=== PATIENT | female | born 1995 | race Caucasian/White ===

== ENCOUNTER → 2019-11-11 17:08 | Observation (INO) | END | disposition home or self-care (01) | LOC: 1NENULAB | PROVIDERS: ADMIT Advanced Practice Midwife; ATTEND Advanced Practice Midwife ==

== ENCOUNTER → 2019-11-26 19:00 | Observation (INO) ==
[2019-11-26 16:02] LABS: Bilirubin,Urine Negative (Negative); Blood,Urine Small (Negative); Clarity,Urine Clear (Clear); Color,Urine Colorless (Yellow); Glucose,Urine (UA) Normal (Normal); Ketones,Urine Negative (Negative); Leukocyte Esterase,Urine Negative (Negative); Nitrite,Urine Negative (Negative); Protein,Urine Negative (Neg-Trace); RBC,Urine 0-3 per hpf (0-3); Specific Gravity,Urine 1.005 (1.010-1.025); Squamous Epithelial Cell,Urine Few per hpf (None-Few); Urobilinogen,Urine Normal (Normal); WBC,Urine 0-3 per hpf (0-3)
== END | disposition home or self-care (01) ==
LOC: 1NENULAB
PROVIDERS: ADMIT Registered Nurse; ATTEND Registered Nurse

== ENCOUNTER 2019-12-13 16:25 | Inpatient (IN) ==
[~2019-12-13 16:25] MED LIST: *HR* FentaNYL (PF) 100 MCG/2 ML VIAL IVP PRN; Famotidine 20 MG/2 ML VIAL IVP PRN; Lidocaine 1% 20 ML MDV INFILT PRN; Metoclopramide 10 MG/2 ML VIAL IVP PRN; Naloxone 0.4 MG/ML INJ IVP PRN; Ondansetron 4 MG/2 ML VIAL IVP PRN
[2019-12-13] MEDS ORDERED: EPHEDrine 50 MG/ML VIAL IVP PRN (16:52)
[2019-12-13] MEDS ORDERED: Epidural Premix (fent/bupiv) 110 ML EP SCH (17:00)
[2019-12-13 17:48] LABS: Basophils # 0.1 K/mcL (0.0-0.2); Basophils % 0.7 %; Eosinophils # 0.1 K/mcL (0.0-0.6); Eosinophils % 0.7 %; Hematocrit 33.7 % (35.3-44.9); Immature Granulocytes % 0.7 % (0-4); Lymphocytes # 1.8 K/mcL (0.6-4.6); Lymphocytes % 23.8 %; Mean Corpuscular HGB Conc 32.6 g/dL (31.6-35.5); Mean Corpuscular Hemoglobin 28.2 pg (28.0-33.3); Mean Corpuscular Volume 86.4 fL (83.0-100.0); Mean Platelet Volume 11.4 fL (9.4-12.4); Monocytes # 0.6 K/mcL (0.0-1.3); Monocytes % 7.3 %; Platelet Count 198 K/mcL (140-400); Segmented Neutrophils % 66.8 %; White Blood Count 7.5 K/mcL (4.3-11.1)
[2019-12-13 17:58] LABS: Amphetamine Screen,Urine Negative ng/mL (Cutoff=1000); Barbiturate Screen,Urine Negative ng/mL (Cutoff=200); Benzodiazepines Screen,Urine Negative ng/mL (Cutoff=200); Cannabinoid Screen,Urine Negative ng/mL (Cutoff = 50); Cocaine Screen,Urine Negative ng/mL (Cutoff= 300); Creatinine,Urine 46 mg/dL; Opiate Screen,Urine Negative ng/mL (Cutoff=300); Phencyclidine Screen,Urine Negative ng/mL (Cutoff=25)
[2019-12-13 18:08] LABS: Alanine Aminotransferase 6 Units/L (7-52); Aspartate Amino Transferase 13 Units/L (13-39); BUN/Creatinine Ratio 11 (6-26); Blood Urea Nitrogen 5 mg/dL (6-20); Glucose 81 mg/dL (70-105); Lactate Dehydrogenase 112 Units/L (140-271); Uric Acid 3.9 mg/dL (2.3-7.6); eGFR For African Americans > 60 (> 60); eGFR For Non-African Americans > 60 (> 60)
[2019-12-13] MEDS ORDERED: Oxytocin 20 units/ LR 1000 mL 20 UNIT/1,000 ML BAG IVC SCH (18:45)
[2019-12-13] MEDS: Ringers Solution, Lactated 1,000 ML IVC SCH ×2 (18:58→21:12)
[2019-12-14] MEDS: Ringers Solution, Lactated 1,000 ML IVC SCH (00:49)
[2019-12-14] MEDS ORDERED: Ropivacaine/PF 0.2% 20 ML VIAL ONE (02:52)
[2019-12-14] MEDS ORDERED: *HR* FentaNYL (PF) 100 MCG/2 ML VIAL ONE (02:52)
[2019-12-14] MEDS ORDERED: Lanolin 7 G OINT...G. TP PRN (11:30)
[2019-12-14] MEDS ORDERED: Oxytocin 20 units/ LR 1000 mL 20 UNIT/1,000 ML BAG IVC SCH (11:30)
[2019-12-14] MEDS ORDERED: Rho Immune Globulin 1,500 UNIT SYRINGE IM PRN (11:30)
[2019-12-14] MEDS ORDERED: Measles/Mumps/Rubella Vacc 0.5 ML VIAL SQ PRN (11:30)
[2019-12-14] MEDS ORDERED: Sennosides 8.6 MG TABLET PO PRN (11:30)
[2019-12-14] MEDS ORDERED: Benzocaine/Menthol 56 GM AEROSOL SPRAY TP PRN (11:30)
[2019-12-14] MEDS ORDERED: Acetaminophen 325 MG TABLET PO PRN (11:30)
[2019-12-14] MEDS: Ibuprofen 600 MG TABLET PO PRN ×2 (11:49→21:46)
[2019-12-14] MEDS: Prenatal Vit/FA 1 EACH TABLET PO SCH (11:49)
[2019-12-14] MEDS: *HR* HYDROcodone/Acet 5/325 mg TABLET PO PRN (20:21)
[2019-12-15] MEDS: *HR* HYDROcodone/Acet 5/325 mg TABLET PO PRN (02:31)
[2019-12-15 06:06] LABS: Basophils # 0.1 K/mcL (0.0-0.2); Basophils % 0.5 %; Eosinophils # 0.2 K/mcL (0.0-0.6); Eosinophils % 1.5 %; Hematocrit 28.7 % (35.3-44.9); Immature Granulocytes % 0.4 % (0-4); Lymphocytes # 3.3 K/mcL (0.6-4.6); Lymphocytes % 28.7 %; Mean Corpuscular HGB Conc 31.7 g/dL (31.6-35.5); Mean Corpuscular Hemoglobin 27.4 pg (28.0-33.3); Mean Corpuscular Volume 86.4 fL (83.0-100.0); Mean Platelet Volume 11.2 fL (9.4-12.4); Monocytes # 0.8 K/mcL (0.0-1.3); Monocytes % 7.1 %; Neutrophils # 7.1 K/mcL (1.6-8.9); Platelet Count 222 K/mcL (140-400); Red Blood Count 3.32 M/mcL (3.82-4.97); Red Cell Distribution Width 13.2 % (11.5-14.5); Segmented Neutrophils % 61.8 %
[2019-12-15 06:11] LABS: Hemoglobin 9.1 g/dL (11.5-15.4); White Blood Count 11.4 K/mcL (4.3-11.1)
[2019-12-15 06:18] LABS: Alanine Aminotransferase 6 Units/L (7-52); Aspartate Amino Transferase 22 Units/L (13-39); BUN/Creatinine Ratio 8 (6-26); Blood Urea Nitrogen 4 mg/dL (6-20); Lactate Dehydrogenase 188 Units/L (140-271); Uric Acid 3.7 mg/dL (2.3-7.6); eGFR For African Americans > 60 (> 60); eGFR For Non-African Americans > 60 (> 60)
[2019-12-15] MEDS ORDERED: Perflutren Lipid Microsphere 1.3 ML in 0.9 % Sodium Chloride 8.7 ML IVP PRN (09:36)
[2019-12-15] MEDS: Prenatal Vit/FA 1 EACH TABLET PO SCH (09:57)
[2019-12-15] MEDS: Ibuprofen 600 MG TABLET PO PRN ×2 (10:04→21:14)
[2019-12-16 08:34] VITALS: BP 120/81
[2019-12-16] MEDS: Prenatal Vit/FA 1 EACH TABLET PO SCH (09:16)
== END 2019-12-16 10:00 | disposition home or self-care (01) | DRG 807 ==
LOC: 1NENULAB → 1NENUOBS 12-14 11:00
PROVIDERS: ADMIT Advanced Practice Midwife; ATTEND Advanced Practice Midwife

== ENCOUNTER → 2021-04-08 16:48 | Observation (INO) | END | disposition home or self-care (01) | LOC: 1NENULAB | PROVIDERS: ADMIT Advanced Practice Midwife; ATTEND Advanced Practice Midwife ==

== ENCOUNTER 2021-04-15 22:16 | Inpatient (IN) ==
[~2021-04-15 22:16] MED LIST changes: -*HR* FentaNYL (PF) 100 MCG/2 ML VIAL IVP PRN; +*HR* Nalbuphine 10 MG/ML AMPUL IV PRN; +Epidural Premix (fent/bupiv) 110 ML EP ONE; +Ringers Solution, Lactated 1,000 ML IVC SCH
[2021-04-15] MEDS ORDERED: EPHEDrine 50 MG/ML VIAL IVP PRN (22:18)
[2021-04-15] MEDS ORDERED: Epidural Premix (fent/bupiv) 110 ML EP SCH (22:30)
[2021-04-15] MEDS ORDERED: Oxytocin 20 units/ LR 1000 mL 20 UNIT/1,000 ML BAG IVC SCH (22:45)
[2021-04-15 22:53] LABS: Basophils # 0.1 K/mcL (0.0-0.2); Basophils % 0.4 %; Eosinophils # 0.1 K/mcL (0.0-0.6); Eosinophils % 0.6 %; Hematocrit 33.5 % (35.3-44.9); Hemoglobin 10.7 g/dL (11.5-15.4); Lymphocytes # 3.1 K/mcL (0.6-4.6); Lymphocytes % 24.8 %; Mean Corpuscular HGB Conc 31.9 g/dL (31.6-35.5); Mean Corpuscular Hemoglobin 25.7 pg (28.0-33.3); Mean Corpuscular Volume 80.5 fL (83.0-100.0); Mean Platelet Volume 11.1 fL (9.4-12.4); Monocytes # 0.9 K/mcL (0.0-1.3); Monocytes % 7.3 %; Neutrophils # 8.3 K/mcL (1.6-8.9); Platelet Count 285 K/mcL (140-400); Red Blood Count 4.16 M/mcL (3.82-4.97); Red Cell Distribution Width 14.7 % (11.5-14.5); Segmented Neutrophils % 65.9 %; White Blood Count 12.6 K/mcL (4.3-11.1)
[2021-04-15] MEDS ORDERED: Ondansetron 4 MG/2 ML VIAL ONE (23:13)
[2021-04-15 23:41] LABS: Amphetamine Screen,Urine Negative ng/mL (Cutoff=1000); Barbiturate Screen,Urine Negative ng/mL (Cutoff=200); Benzodiazepines Screen,Urine Negative ng/mL (Cutoff=200); Cannabinoid Screen,Urine Positive ng/mL (Cutoff = 50); Cocaine Screen,Urine Negative ng/mL (Cutoff= 300); Opiate Screen,Urine Negative ng/mL (Cutoff=300); Phencyclidine Screen,Urine Negative ng/mL (Cutoff=25)
[2021-04-16] MEDS ORDERED: Lanolin 7 G OINT...G. TP PRN (08:26)
[2021-04-16] MEDS ORDERED: Benzocaine/Menthol 56 GM AEROSOL SPRAY TP PRN (08:26)
[2021-04-16] MEDS ORDERED: Oxytocin 20 units/ LR 1000 mL 20 UNIT/1,000 ML BAG IVC SCH (08:26)
[2021-04-16] MEDS ORDERED: Measles/Mumps/Rubella Vacc 0.5 ML VIAL SQ PRN (08:26)
[2021-04-16] MEDS ORDERED: Ondansetron ODT 4 MG TAB.RAPDIS SL PRN (08:26)
[2021-04-16] MEDS: Prenatal Vit/FA 1 EACH TABLET PO SCH (09:23)
[2021-04-16] MEDS: Acetaminophen 325 MG TABLET PO SCH ×2 (09:27→20:29)
[2021-04-16] MEDS: Ibuprofen 600 MG TABLET PO SCH ×2 (09:27→20:30)
[2021-04-17 06:33] VITALS: BP 100/63; PULSE 86; TEMP 98; O2SAT 99
[2021-04-17] MEDS: Prenatal Vit/FA 1 EACH TABLET PO SCH (08:34)
[2021-04-17] MEDS: Acetaminophen 325 MG TABLET PO SCH (09:30)
[2021-04-17] MEDS: Ibuprofen 600 MG TABLET PO SCH (09:30)
== END 2021-04-17 11:15 | disposition home or self-care (01) | DRG 807 ==
LOC: 1NENULAB → 1NENUOBS 04-16 08:09
PROVIDERS: ADMIT Advanced Practice Midwife; ATTEND Advanced Practice Midwife